=== PATIENT | male | born 1935 | race Caucasian/White ===

== ENCOUNTER 2020-12-05 08:50 | Day surgery (SDC) | payer MEDICARE ==
[~2020-12-05 08:50] MED LIST: Lactated Ringers 1,000 ML IV SCH
[2020-12-05] MEDS ORDERED: Lactated Ringers 1,000 ML IV ONE (09:09)
--- NOTE | 2020-12-05 09:17 | HP ---
DATE OF SURGERY: 12/05/2020 HISTORY OF PRESENT ILLNESS: The patient is an 85 year-old who is having increased gas, change in bowel habits and occasional constipation. No bloody stools. No pain. Just a little more gas. Family history negative for colon cancer, inflammatory bowel disease. Last colonoscopy was in 2012 with reported history of polyps in the past. PAST MEDICAL HISTORY: Hypertension. PAST SURGICAL HISTORY: Incarcerated epigastric ventral hernia in the past. MEDICATIONS: Hyzaar, Bactroban ointment. ALLERGIES: NKDA. FAMILY HISTORY: Colon cancer, inflammatory bowel disease. SOCIAL HISTORY: Denies smoking. REVIEW OF SYSTEMS: Fourteen systems reviewed. No chest pain or palpitations. Other systems negative or noncontributory as above and per preadmission questionnaire. PHYSICAL EXAMINATION: GENERAL: No acute distress. HEENT: Sclerae nonicteric. NECK: No JVD. CHEST: Clear to auscultation. CVS: Regular rate and rhythm. ABDOMEN: Soft. No peritoneal signs. EXTREMITIES: No significant edema. NEURO: Alert, oriented, moving extremities symmetrically. RECTAL: Deferred timed to endoscopy exam. PSYCH: Appropriate mood and affect. IMPRESSION: Change in bowel habits, history of polyps in need of follow up colonoscopy. The risks and benefits explained in detail. He is due for a screening colonoscopy at this time. He is in need of follow up colonoscopy. Shown the risk sheet, explained the procedure in detail including but not limited to bleeding or infection, risk of bowel injury or perforation, risk of missed or nondiagnosis or incomplete exam possibly requiring barium enema, other studies or procedures, general risk of anesthesia or sedation, risk of bowel prep, risk of sedation, risk of incomplete exam possibly requiring barium enema, general risk of anesthesia but not limited to, consent obtained. He understands and will proceed with MAC anesthesia colonoscopy as an outpatient.
[2020-12-05] MEDS ORDERED: DIPRIVAN 200 MG/20 ML IV ONE ×2 (10:55→11:15)
[2020-12-05] MEDS ORDERED: TRANDATE 100 MG/20 ML MDV FOR DRIP IV ONE (11:45)
[2020-12-05] MEDS ORDERED: APRESOLINE 20 MG/ML INJ ONE (12:17)
[2020-12-05] MEDS ORDERED: Zofran 4 MG/2 ML VIAL ONE (12:32)
[2020-12-05] MEDS ORDERED: APRESOLINE 20 MG/ML INJ IV PRN (13:12)
[2020-12-05 13:36] VITALS: O2SAT 95
[2020-12-05 13:46] VITALS: BP 181/79; PULSE 73
--- NOTE | 2020-12-05 15:16 | OP ---
SURGERY DATE/TIME: 12/05/2020 1056 PREOPERATIVE DIAGNOSIS: Prior history of polyps, history of some constipation, bloating, change in bowel habits, need for follow up screening colonoscopy. POSTOPERATIVE DIAGNOSES: 1) Small polyps. 2) Mild diverticulosis. 3) Fair bowel prep. 4) ASA Class II. 5) Withdrawal time approximately 8 minutes. 6) Fair bowel prep. PROCEDURES: 1) Colonoscopy to terminal ileum. 2) Hot biopsy small cecal raised lesion versus early hyperplastic lesion. 3) Hot biopsy removal of ascending colon small early polyp versus hyperplastic lesion. 4) Hot biopsy removal of small sigmoid colon polyp (question inflammatory polyp). 5) Hot biopsy small rectal polyp versus hyperplastic lesion. SURGEON: Dr. Trey Dominguez. ANESTHESIA: MAC. ESTIMATED BLOOD LOSS: Minimal. INDICATIONS: As noted above. Risks and benefits explained in detail but not limited to and consent obtained. DESCRIPTION OF PROCEDURE AND FINDINGS: The patient is taken to the operating room. MAC anesthesia introduced. After official time out and no disagreement with planned procedure, digital rectal exam did not reveal any palpable rectal masses. Video colonoscope inserted and passed up through the very tortuous sigmoid, descending, transverse and ascending colon requiring two different staff members in addition positioning on his back. The scope was finally able to be passed through the cecum. Appendiceal orifice and valve well visualized. Scope in the distal tip of the terminal ileum was grossly unremarkable. The scope pulled back. There was very small vague raised area whether this is just a variation of the mucosa versus early polyp or hyperplastic lesion, hot biopsies accomplished. Good hemostasis noted. Otherwise the scope was slowly and carefully withdrawn over the next eight minutes. ASA Class II. Photo documented the appendiceal ileocecal valve area. Palpation right lower quadrant pain to confirm location. The scope is slowly and carefully withdrawn over the next eight minutes. Small early polyp versus hyperplastic lesion in the ascending colon removed with hot biopsy forceps, this is again repeated in the sigmoid colon. That area appeared to be more of an inflammatory polyp that was removed with hot biopsy forceps. Good hemostasis noted. Another small early polyp versus hyperplastic lesion in the rectum was removed with hot biopsy forceps. He had diverticulosis. He had some small internal hemorrhoids. Otherwise, overall fair prep with very tortuous colon. The patient tolerated the procedure well. I will see if there is any family available in the waiting area to discuss the findings with. I will see him back in the office next week.
== END 2020-12-05 14:00 | disposition home or self-care (01) ==
LOC: SDC 08:50
PROVIDERS: ATTEND Surgery
DX: Z12.11 Encounter for screening for malignant neoplasm of colon (principal); D12.2 Benign neoplasm of ascending colon; D12.8 Benign neoplasm of rectum; K59.00 Constipation, unspecified; I10 Essential (primary) hypertension; Z79.899 Other long term (current) drug therapy; Z80.0 Family history of malignant neoplasm of digestive organs; K57.30 Diverticulosis of large intestine without perforation or abscess without bleeding; Z86.010 Personal history of colon polyps; K64.8 Other hemorrhoids
CPT/HCPCS: 88305; 99100; J0360; J2405; J2704

== ENCOUNTER 2022-03-16 19:32 | Emergency (ER) | payer MEDICARE ==
--- NOTE | 2022-03-16 19:46 | ERPHSYRPT ---
- History of Present Illness Time Seen by Provider: 03/16/22 19:45 Historian: patient Exam Limitations: no limitations Physician History: This is an 87-year-old white male patient who lives alone and complains of constipation for 2 days. He did use Dulcolax pills on 2 different occasions without significant effect. Upon arrival into the emergency department he did have a very small bowel movement. In the last couple days he has noticed to external "parachute" that were present and mildly tender. He had a normal colonoscopy recently per his report. He denies chest pain. He denies abdominal pain. He has had no nausea or vomiting. Timing/Duration: day(s) (2) Activities at Onset: none Pain Radiation: no radiation Severity of Pain-Max: mild Severity of Pain-Current: mild (Perianal) Modifying Factors: Improves With: other (Constipation) Associated Symptoms: other (Constipation) Previous symptoms: no prior history Allergies/Adverse Reactions: No Known Drug Allergies Allergy (Verified 12/05/20 09:09) Home Medications: Aspirin 81 gm Chew [Baby Aspirin 81 mg Chew] 81 mg PO DAILY 11/25/20 [History] Losartan/Hydrochlorothiazide [Hyzaar 100-25 Tablet] 1 each PO DAILY 11/25/20 [History] Multivitamin 1 each PO DAILY 11/25/20 [History] Travel Risk - International Travel Have you traveled outside of the country in past 3 weeks: No - Coronavirus Screening Are you exhibiting any of the following symptoms?: No Close contact with a COVID-19 positive Pt in past 14-21 Days: No - Review of Systems Constitutional: No Symptoms Eyes: No Symptoms Ears, Nose, & Throat: No Symptoms Respiratory: No Symptoms Cardiac: No Symptoms Abdominal/Gastrointestinal: Constipation, No Abdominal Pain, No Nausea, No Vomi ting, No Diarrhea Genitourinary Symptoms: No Symptoms Musculoskeletal: No Symptoms Skin: No Symptoms Neurological: No Symptoms Psychological: No Symptoms Endocrine: No Symptoms Hematologic/Lymphatic: No Symptoms Immunological/Allergic: No Symptoms All Other Systems: Reviewed and Negative - Past Medical History Pertinent Past Medical History: Yes Neurological History: No Pertinent History ENT History: No Pertinent History Cardiac History: Arrhythmia, Hypertension Respiratory History: No Pertinent History Endocrine Medical History: No Pertinent History Musculoskeletal History: No Pertinent History GI Medical History: No Pertinent History History: No Pertinent History Psycho-Social History: No Pertinent History Male Reproductive Disorders: No Pertinent History - Past Surgical History Past Surgical History: Yes Neuro Surgical History: No Pertinent History Cardiac: No Pertinent History Respiratory: No Pertinent History Gastrointestinal: Other Genitourinary: No Pertinent History Musculoskeletal: No Pertinent History Male Surgical History: No Pertinent History Other Surgical History: "bellybutton surgery", colonoscopy - Social History Smoking Status: Former smoker Exposure to second hand smoke: No Drug Use: none - Physical Exam General Appearance: no apparent distress, alert, anxiety Eye Exam: PERRL/EOMI, eyes nml inspection Ears, Nose, Throat Exam: normal ENT inspection, moist mucous membranes Neck Exam: normal inspection, non-tender, supple, full range of motion Respiratory Exam: normal breath sounds, lungs clear, airway intact, No chest tenderness, No respiratory distress Cardiovascular Exam: regular rate/rhythm, normal heart sounds, normal peripheral pulses Gastrointestinal/Abdomen Exam: soft, normal bowel sounds, No tenderness Rectal Exam: hemorrhoids (Tender swelling) Back Exam: normal inspection, normal range of motion, No CVA tenderness, No vertebral tenderness Extremity Exam: normal inspection, normal range of motion, pelvis stable Neurologic Exam: alert, oriented x 3, cooperative, broiler manager II-XII nml as tested, normal mood/affect, nml cerebellar function, nml station & gait, sensation nml Skin Exam: normal color, warm Lymphatic Exam: No adenopathy SpO2 Interpretation: normal O2 Delivery: Room Air - Course Nursing assessment & vital signs reviewed: Yes - Progress Progress: unchanged Progress Note: 03/16/22 20:17 Medical decision making: This patient does have 2 days worth of constipation and only use Dulcolax pills without significant benefit. I reviewed with him other options including daily MiraLAX and we will provide him with fleets enema that he will use regularly and a bottle of magnesium citrate which she will drink rapidly when he gets home tonight. He has hemorrhoids that are present and we will provide him prescription with hemorrhoidal cream/ointment that he will use. In addition he will use Tucks medicated hemorrhoidal pads [id number] and will use sitz bath twice a day and warm soapy water or warm Epson salts twice a day. Counseled pt/family regarding: diagnosis, need for follow-up - Departure Departure Disposition: Home Clinical Impression: Constipation, Hemorrhoids Condition: Stable Critical Care Time: No Referrals: SHARMIN KINGSLEY [Primary Care Provider] - Follow up/PCP as directed Additional Instructions: Drop your diet down to clear liquids to full liquids diet. Once you are having bowel movements, then advance your diet slowly. May use [id number] MiraLAX product daily to help with constipation. Also, purchase Tucks medicated hemorrhoidal pads [id number] to help with your hemorrhoids. Sit and warm soapy water or warm Epson salts twice a day. May repeat your fleets enema rectally and rapid oral consumption of a second bottle of magnesium citrate at 9 AM tomorrow morning if the first round, that we provided you in the hospital, is ineffective. Use the fleets enema approximately 45 minutes after drinking the magnesium citrate rapidly and not slowly. Return to the emergency department if symptoms worsen. Follow-up with your primary care provider for persistent symptoms
[2022-03-16] MEDS ORDERED: CITROMA 296 ML PO ONE (20:18)
[2022-03-16] MEDS ORDERED: ANUSOL-HC 2.5% CREAM 30 GM TP ONE (20:22)
[2022-03-16 20:29] VITALS: BP 153/76; PULSE 91; O2SAT 94
[2022-03-16] MEDS ORDERED: CITROMA 296 ML ONE (20:34)
== END 2022-03-16 21:16 | disposition home or self-care (01) ==
LOC: ED 19:32
DX: K59.00 Constipation, unspecified (principal); K64.9 Unspecified hemorrhoids; I10 Essential (primary) hypertension; Z79.899 Other long term (current) drug therapy
CPT/HCPCS: 99283; A9270-GY